=== PATIENT | female | born 1995 | race Caucasian/White ===

== ENCOUNTER → 2023-02-23 09:49 | Outpatient (CLI) | payer OTHER, MEDICAID, SELFPAY ==
[2023-02-23 10:29] LABS: Add Manual Diff / Slide Review NO; Basophils Absolute Auto 0 /uL (0-100); Basophils Percent Auto 0.3 % (0-2); Eosinophils Absolute Auto 0 /uL (0-450); Eosinophils Percent Auto 0.5 % (2-4); Hematocrit 41.3 % (36-46); Hemoglobin 14.3 g/dL (12.0-16.0); Lymphocytes Absolute Auto 2600 /uL (1100-4500); Mean Corpuscular HGB Conc 34.7 % (30-36); Mean Corpuscular Hemoglobin 31.8 PG (26-34); Mean Corpuscular Volume 91.8 fL (80-100); Monocytes Absolute Auto 500 /uL (0-900); Monocytes Percent Auto 5.6 % (3-14); Neutrophils Absolute Auto 5500 /uL (1500-7000); Neutrophils Percent Auto 63.6 % (50-75); Platelet Count 316 X10^3/uL (150-400); Red Cell Distribution Width 13.3 % (11.6-14.8); White Blood Cell Count 8.7 X10^3/uL (4.5-11.0)
[2023-02-23 10:44] LABS: Alanine Aminotransferase 17 IU/L (<35); Albumin 4.8 g/dL (3.5-5.0); Albumin Globulin Ratio 1.5 (1.0-2.8); Alkaline Phosphatase 57 U/L (38-126); Aspartate Aminotransferase 22 IU/L (14-36); BUN Creatinine Ratio 12.9 (6-22); Bilirubin Total 0.3 mg/dL (0.2-1.3); Blood Urea Nitrogen 8 mg/dL (7-17); Carbon Dioxide 21 mmol/L (22-32); Chloride 105 mmol/L (98-107); Cholesterol 154 mg/dL (140-199); Estimated Glomerular Filt Rate > 60 mL/min (>60); Globulin 3.2 g/dL (1.7-4.1); Glucose 84 mg/dL (70-100); HDL Cholesterol 66 mg/dL (40-60); HEMOLYSIS < 15 (0-50); LDL Cholesterol Calculated 78 mg/dL (<100); Potassium 4.2 mmol/L (3.4-5.1); Sodium 140 mmol/L (137-145); Triglycerides 51 mg/dL (35-150)
[2023-02-23 11:12] LABS: Thyroid Stimulating Hormone 0.707 uIU/mL (0.47-4.68)
[2023-02-23 11:29] LABS: HIV 1 & 2 Ab/Ag 4th Gen Combo NEGATIVE (NEGATIVE); Hep C Virus Ab w/Reflex Quant NEGATIVE s/c (NEGATIVE)
[2023-02-23 11:41] LABS: Vitamin B12 793 pg/mL (239-931)
[2023-03-01 07:11] LABS: RPR Screen Non Reactive (Non Reactive)
== END ==
PROVIDERS: PCP Family Medicine; Referring Provider Family Medicine; Visit Provider Family Medicine
DX: F41.9 Anxiety disorder, unspecified (principal); F31.9 Bipolar disorder, unspecified; E28.2 Polycystic ovarian syndrome; R63.0 Anorexia
CPT/HCPCS: 36415; 80053; 80061; 82607; 83036; 84443; 85025; 86592; 86803; 87389

== ENCOUNTER → 2023-04-30 09:26 | Outpatient (CLI) | payer OTHER, MEDICAID, SELFPAY | PROVIDERS: PCP Family Medicine; Visit Provider Family Medicine | DX: N92.6 Irregular menstruation, unspecified (principal); E28.2 Polycystic ovarian syndrome; N89.8 Other specified noninflammatory disorders of vagina | CPT/HCPCS: 87210 ==

== ENCOUNTER 2023-05-01 00:07 | Emergency (ER) | payer OTHER, MEDICAID, SELFPAY ==
[2023-05-01 00:14] VITALS: BP 138/66; PULSE 104; RESP 18; TEMP 36.9; O2SAT 98; BMI 25.2
[2023-05-01 00:23] VITALS: PULSE 98; O2SAT 97
[2023-05-01 00:24] VITALS: BP 121/63; PULSE 102; O2SAT 98
[2023-05-01 00:30] VITALS: BP 113/59; PULSE 103; O2SAT 97
[2023-05-01] MEDS: SODIUM CHLORIDE 0.9% 1,000 ML 1000 ML IV (00:34)
[2023-05-01] MEDS: ONDANSETRON 4 MG/2 ML INJ IV (00:34)
[2023-05-01 00:37] LABS: Add Manual Diff / Slide Review NO; Basophils Absolute Auto 100 /uL (0-100); Basophils Percent Auto 0.7 % (0-2); Eosinophils Absolute Auto 100 /uL (0-450); Hematocrit 42.9 % (36-46); Hemoglobin 14.6 g/dL (12.0-16.0); Lymphocytes Absolute Auto 5500 /uL (1100-4500); Lymphocytes Percent Auto 40.2 % (25-40); Mean Corpuscular Hemoglobin 31.7 PG (26-34); Mean Corpuscular Volume 93.4 fL (80-100); Monocytes Absolute Auto 900 /uL (0-900); Monocytes Percent Auto 6.3 % (3-14); Neutrophils Absolute Auto 7100 /uL (1500-7000); Neutrophils Percent Auto 51.8 % (50-75); Platelet Count 326 X10^3/uL (150-400); Red Cell Distribution Width 13.2 % (11.6-14.8); White Blood Cell Count 13.7 X10^3/uL (4.5-11.0)
[2023-05-01 01:00] VITALS: BP 100/70; PULSE 85; O2SAT 99
[2023-05-01 01:00] LABS: BUN Creatinine Ratio 15.1 (6-22); Blood Urea Nitrogen 8 mg/dL (7-17); Calcium 9.3 mg/dL (8.4-10.2); Carbon Dioxide 23 mmol/L (22-32); Chloride 104 mmol/L (98-107); Estimated Glomerular Filt Rate > 60 mL/min (>60); Glucose 60 mg/dL (70-100); HEMOLYSIS < 15 (0-50); Potassium 3.9 mmol/L (3.4-5.1); Sodium 137 mmol/L (137-145)
--- NOTE | 2023-05-01 01:04 | ED.NAVMDI ---
HPI - Nausea/Vomiting/Diarrhea General Chief complaint: Nausea/Vomiting/Diarrhea Stated complaint: vomiting blood Time Seen by Provider: 05/01/23 00:26 Source: patient Mode of arrival: Ambulatory History of Present Illness HPI Narrative: Patient is a 27-year-old female. She is here for evaluation of less 6 hours of nausea and vomiting. Patient states that she took her nightly medications. This is not unusual for. She states that afterwards she started to feel somewhat nauseous and lightheaded. She went and laid down on the couch and then felt like she was going to go throw up. She then went to the bathroom and threw up a total of 3 times. The 2nd 2 episodes were blood-streaked. No chest pain. No fevers. No diarrhea. No shortness of breath. She does have some discomfort in her upper abdomen. Related Data Previous Rx's Medication Instructions Recorded aripiprazole 15 mg tablet (Abilify) 15 mg PO DAILY #30 tabs 01/29/23 buspirone 10 mg tablet 10 mg PO BID PRN anxiety #60 tabs 01/29/23 lamotrigine 200 mg tablet 200 mg PO DAILY #30 tabs 01/29/23 mirtazapine 15 mg tablet 15 mg PO ONCE PM #30 tabs 01/29/23 spironolactone 100 mg tablet 100 mg PO DAILY #90 tabs 01/29/23 cyproheptadine 4 mg tablet 4 mg PO BID-TID PRN Decreased 02/23/23 appetite #60 tabs norgestimate-ethinyl estradiol 1 tab PO DAILY #84 tabs 03/19/23 0.18 mg/0.215mg/0.25mg-35 mcg(28)tablet (Tri-Sprintec (28)) fluconazole 150 mg tablet 150 mg PO Q3D 2 doses #2 tabs 04/23/23 ondansetron 4 mg disintegrating 4 mg PO Q6H PRN nausea and 05/01/23 tablet vomiting #10 tabs Allergies Allergy/AdvReac Type Severity Reaction Status Date / Time No Known Drug Allergies Allergy Unverified 04/23/23 11:21 Review of Systems Constitutional Constitutional: Reports system reviewed and no additional complaints, except as documented Cardiovascular Cardiovascular: Reports system reviewed and no additional complaints, except as documented Respiratory Respiratory: Reports system reviewed and no additional complaints, except as documented Gastrointestinal Gastrointestinal: Reports system reviewed and no additional complaints, except as documented Genitourinary Genitourinary: Reports system reviewed and no additional complaints, except as documented Neurologic Neurologic: Reports system reviewed and no additional complaints, except as documented Patient History Medical History Nevus of back Social History Smoking Status: Former smoker Smoking Status: Former smoker Substance Use Type: marijuana Exam Initial Vital Signs Initial Vital Signs: Vital Signs Temperature 98.4 F 05/01/23 00:14 Pulse Rate 104 H 05/01/23 00:14 Respiratory Rate 18 05/01/23 00:14 Blood Pressure 138/66 05/01/23 00:14 Pulse Oximetry 98 05/01/23 00:14 Oxygen Delivery Method Room Air 05/01/23 00:14 HENMT Head: normal to inspection and normocephalic Resp Effort & Inspection: normal respiratory effort Auscultation: clear to auscultation bilaterally Cardio Rate: regular rate GI Inspection: normal to inspection Palpation: soft, No firm and No guarding Course Orders Ordered: ED Orders 05/01/23 00:28 Basic Metabolic Panel Stat Complete Blood Count AUTO DIFF Stat Test Serum,Qual Stat Discontinued Medications Sodium Chloride (Normal Saline 0.9%) 1,000 mls @ 1,000 mls/hr IV BOLUS ONE Stop: 05/01/23 01:25 Last Infusion: 05/01/23 01:20 Dose: Infused Documented By: Admin: 05/01/23 00:34 Dose: 1,000 mls/hr Documented By: ROBERT Ondansetron HCl (Ondansetron 4 Mg/2 Ml Inj) 4 mg IV NOW ONE Stop: 05/01/23 00:27 Last Admin: 05/01/23 00:34 Dose: 4 mg Documented By: ROBERT Ondansetron HCl (Ondansetron 4 Mg Odt Prepack) 1 bottle MISC DIRECTED ONE Stop: 05/01/23 01:23 Pantoprazole Sodium (Pantoprazole 40 Mg Vial) 40 mg IV NOW ONE Stop: 05/01/23 01:04 Last Admin: 05/01/23 01:09 Dose: 40 mg Documented By: SILVIA Vital Signs Vital signs: Vital Signs - 8 hr 05/01/23 00:14 05/01/23 00:23 05/01/23 00:24 Temperature 98.4 F Pulse Rate 104 H 98 H Respiratory Rate 18 Blood Pressure 138/66 121/63 Pulse Oximetry 98 97 Oxygen Delivery Method Room Air 05/01/23 00:24 05/01/23 00:30 05/01/23 00:30 Temperature Pulse Rate 102 H 103 H Respiratory Rate Blood Pressure 113/59 L Pulse Oximetry 98 97 Oxygen Delivery Method 05/01/23 01:00 05/01/23 01:00 Temperature Pulse Rate 85 Respiratory Rate Blood Pressure 100/70 Pulse Oximetry 99 Oxygen Delivery Method MDM - Nausea/Vomiting/Diarrhea Lab Data Attestation: I reviewed the patient's lab results. 05/01/23 00:28 05/01/23 00:28 Labs: Lab Results 05/01/23 Range/Units 00:28 WBC 13.7 H (4.5-11.0) X10^3/uL RBC 4.60 (4.0-5.2) X10^6/uL Hgb 14.6 (12.0-16.0) g/dL Hct 42.9 (36-46) % MCV 93.4 (80-100) fL MCH 31.7 (26-34) PG MCHC 34.0 (30-36) % RDW 13.2 (11.6-14.8) % Plt Count 326 (150-400) X10^3/uL Neut % (Auto) 51.8 (50-75) % Lymph % (Auto) 40.2 H (25-40) % [place] % (Auto) 6.3 (3-14) % Eos % (Auto) 1.0 L (2-4) % Baso % (Auto) 0.7 (0-2) % Neut # (Auto) 7100 H (1773-2082) /uL Lymph # (Auto) 5500 H (2222-4381) /uL [place] # (Auto) 900 (0-900) /uL Eos # (Auto) 100 (0-450) /uL Baso # (Auto) 100 (0-100) /uL Sodium 137 (137-145) mmol/L Potassium 3.9 (3.4-5.1) mmol/L Chloride 104 (98-107) mmol/L Carbon Dioxide 23 (22-32) mmol/L BUN 8 (7-17) mg/dL Creatinine 0.53 (0.52-1.04) mg/dL Estimated GFR > 60 (>60) mL/min BUN/Creatinine Ratio 15.1 (6-22) Glucose 60 L (70-100) mg/dL Calcium 9.3 (8.4-10.2) mg/dL Serum , Qual Negative (Negative) MDM Narrative Medical decision making narrative: Patient states she was feeling much better after the Zofran. She was able to tolerate oral intake. Has been on abdominal exam. Labs unremarkable. Was given Protonix. Suspect the blood was either from a gastritis or potentially Grisel-Singletary tear. No indication for radiologic studies today. Will discharge patient home with nausea medication. She is given return precautions. She expressed understanding and agreement. Discharge Plan Departure Patient Disposition: Home Clinical Impression: Nausea and vomiting Instructions: Nausea and Vomiting-Adult Activity Restrictions/Additional Instructions: Recommend bland diet for the next couple days. Be sure that you were increasing your fluid intake. Continue to take all of your medications as directed. Use the nausea medication as needed. Return to the emergency department for new symptoms. Prescriptions: New ondansetron 4 mg tablet,disintegrating 4 mg PO Q6H PRN (Reason: nausea and vomiting) Qty: 10 0RF No Action cyproheptadine 4 mg tablet 4 mg PO BID-TID PRN (Reason: Decreased appetite) Qty: 60 2RF norgestimate-ethinyl estradiol [Tri-Sprintec (28)] 0.18/0.215/0.25 mg-35 mcg (28) tablet 1 tab PO DAILY Qty: 84 3RF fluconazole 150 mg tablet 150 mg PO Q3D Qty: 2 1RF spironolactone 100 mg tablet 100 mg PO DAILY Qty: 90 2RF aripiprazole [Abilify] 15 mg tablet 15 mg PO DAILY Qty: 30 2RF lamotrigine 200 mg tablet 200 mg PO DAILY Qty: 30 2RF buspirone 10 mg tablet 10 mg PO BID PRN (Reason: anxiety) Qty: 60 2RF mirtazapine 15 mg tablet 15 mg PO ONCE PM Qty: 30 2RF Referrals: Hong Mckee MD [Primary Care Provider] - Stand Alone Forms: Patient Portal/API
[2023-05-01] MEDS: PANTOPRAZOLE 40 MG VIAL IV (01:09)
[2023-05-01 01:11] LABS: Pregnancy Test Serum,Qual Negative (Negative)
[2023-05-01] MEDS: ONDANSETRON 4 MG ODT PREPACK 1 BOTTLE MISC (01:27)
== END 2023-05-01 01:36 | disposition home or self-care (01) ==
PROVIDERS: Emergency Provider Emergency Medicine; PCP Family Medicine
DX: R11.2 Nausea with vomiting, unspecified (principal); R10.10 Upper abdominal pain, unspecified
CPT/HCPCS: 36415; 80048; 84703; 85025; 96361; 96374; 96375; 99284; C9113; J2405

== ENCOUNTER → 2023-05-27 09:32 | Outpatient (CLI) | payer OTHER, MEDICAID, SELFPAY | LOC: CAR 09:34 | PROVIDERS: PCP Family Medicine; Referring Provider Family Medicine; Visit Provider Family Medicine | DX: R55 Syncope and collapse (principal) | CPT/HCPCS: 93246 ==

== ENCOUNTER → 2023-09-28 16:52 | Outpatient (CLI) | payer OTHER, MEDICAID, SELFPAY | PROVIDERS: PCP Family Medicine; Visit Provider Physician Assistant Surgical | DX: R30.0 Dysuria (principal) | CPT/HCPCS: 87086 ==

== ENCOUNTER → 2024-01-24 09:19 | Outpatient (CLI) | payer OTHER, MEDICAID, SELFPAY ==
[2024-01-24 10:31] LABS: Add Manual Diff / Slide Review NO; Basophils Absolute Auto 0 /uL (0-100); Basophils Percent Auto 0.2 % (0-2); Eosinophils Absolute Auto 100 /uL (0-450); Eosinophils Percent Auto 0.8 % (2-4); Hematocrit 41.5 % (36-46); Lymphocytes Absolute Auto 2700 /uL (1100-4500); Lymphocytes Percent Auto 30.4 % (25-40); Mean Corpuscular HGB Conc 33.7 % (30-36); Mean Corpuscular Hemoglobin 30.9 PG (26-34); Mean Corpuscular Volume 91.7 fL (80-100); Monocytes Absolute Auto 500 /uL (0-900); Monocytes Percent Auto 6.1 % (3-14); Neutrophils Absolute Auto 5500 /uL (1500-7000); Neutrophils Percent Auto 62.5 % (50-75); Platelet Count 338 X10^3/uL (150-400); Red Blood Cell Count 4.53 X10^6/uL (4.0-5.2); Red Cell Distribution Width 12.8 % (11.6-14.8); White Blood Cell Count 8.8 X10^3/uL (4.5-11.0)
[2024-01-24 10:49] LABS: Hemoglobin A1C% w Est Avg Glu 4.8 % (4.0-6.0)
[2024-01-24 10:52] LABS: Alanine Aminotransferase 15 IU/L (<35); Albumin 4.6 g/dL (3.5-5.0); Albumin Globulin Ratio 1.6 (1.0-2.8); Alkaline Phosphatase 60 U/L (38-126); Aspartate Aminotransferase 22 IU/L (14-36); BUN Creatinine Ratio 9.2 (6-22); Bilirubin Total 0.5 mg/dL (0.2-1.3); Blood Urea Nitrogen 6 mg/dL (7-17); Calcium 9.5 mg/dL (8.4-10.2); Carbon Dioxide 23 mmol/L (22-32); Chloride 105 mmol/L (98-107); Estimated Glomerular Filt Rate > 60 mL/min (>60); Globulin 2.8 g/dL (1.7-4.1); Glucose 75 mg/dL (70-100); HEMOLYSIS < 15 (0-50); Potassium 3.9 mmol/L (3.4-5.1); Sodium 139 mmol/L (137-145); Total Protein 7.4 g/dL (6.3-8.2)
[2024-01-24 11:05] LABS: Follicle Stimulating Hormone 3.35 mIU/mL; Luteinizing Hormone 7.05 mIU/mL
[2024-01-24 11:21] LABS: Estradiol, Total 43.5 pg/mL
== END ==
PROVIDERS: PCP Family Medicine; Referring Provider Family Medicine; Visit Provider Family Medicine
DX: E28.2 Polycystic ovarian syndrome (principal); N92.6 Irregular menstruation, unspecified
CPT/HCPCS: 36415; 80053; 82670; 83001; 83002; 83036; 84146; 84402; 84403; 84443; 85025

== ENCOUNTER → 2024-01-31 08:35 | Outpatient (CLI) | payer OTHER, MEDICAID, SELFPAY ==
--- NOTE | 2024-01-31 08:36 | DI.US.S_ITS ---
PROCEDURE: US TRANSVAGINAL INDICATIONS: Irregular menses, infertility TECHNIQUE: Real-time scanning was performed of the pelvic organs, with image documentation. Additional endovaginal scanning was necessary due to incomplete visualization of the adnexal and endometrial structures by transabdominal scanning. COMPARISON: None. FINDINGS: Uterus: Uterus is anteverted and normal in size at 8.1 x 6 x 4.2 cm. The myometrium is homogeneous. The endometrium measures 5 mm combined thickness. No fibroids seen. Ovaries: The right ovary measures 3.9 x 2.7 x 2.4 cm, with a calculated ovarian volume of 13 cc. The left ovary measures 4.7 x 4 x 1.7 cm, with a calculated ovarian volume of 17 cc. The ovaries have a normal sonographic appearance. Less than 12 follicles can be seen in each ovary. No adnexal masses are seen. Other: No pathologic free abdominal or pelvic fluid. IMPRESSION: 1. Endometrium measures 5 mm. 2. No fibroids seen. 3. No significant ovarian cysts. We strive to produce accurate, complete, and clear reports of imaging services. To assist us in improving patient care, this report was composed using standard report templates and voice recognition software. Therefore, it may contain abnormal punctuation, insertions and/or omissions. Occasional wrong-word or sound-alike substitutions may occur. Though we review the report and make efforts to correct it, we do recommend that the report be read carefully in proper context to recognize any text inaccuracies. Dictated by: Adama Bhandari M.D. on 01/31/2024 at 16:17 Approved by: Adama Bhandari M.D. on 01/31/2024 at 16:18
== END ==
PROVIDERS: PCP Family Medicine; Referring Provider Family Medicine; Visit Provider Family Medicine
DX: N92.6 Irregular menstruation, unspecified (principal); E28.2 Polycystic ovarian syndrome; F60.3 Borderline personality disorder; F32.A Depression, unspecified; F41.9 Anxiety disorder, unspecified
CPT/HCPCS: 76830; 76856; 99214

== ENCOUNTER → 2024-02-11 11:12 | Outpatient (CLI) | payer OTHER, MEDICAID, SELFPAY ==
[2024-02-22 21:38] LABS: Anti Mullerian Hormone 3.97 ng/mL (.)
== END ==
PROVIDERS: PCP Family Medicine; Referring Provider Family Medicine; Visit Provider Family Medicine
DX: N92.6 Irregular menstruation, unspecified (principal)
CPT/HCPCS: 36415; 82397